=== PATIENT | female | born 1955 | race Caucasian/White ===

== ENCOUNTER 2019-10-30 10:44 | Outpatient (CLI) | payer MEDICARE, MEDICAID, SELFPAY | END 2019-10-30 10:45 | PROVIDERS: PCP Nurse Practitioner Family; Visit Provider Audiologist | DX: H91.90 Unspecified hearing loss, unspecified ear (principal) | CPT/HCPCS: 92557; 92567 ==

== ENCOUNTER 2019-11-15 10:44 | Outpatient (CLI) | payer MEDICARE, MEDICAID, SELFPAY ==
[2019-11-15 11:11] LABS: Basophils Absolute Auto 0.06 K/mm3 (0.00-0.10); Basophils Percent Auto 0.7 % (0.0-1.0); Eosinophils Absolute Auto 0.64 K/mm3 (0.02-0.50); Hematocrit 36.2 % (35.0-49.0); Hemoglobin 11.4 g/dL (12.0-15.0); Immature Granulocyte Absolute 0.03 K/mm3 (0.00-0.00); Immature Granulocyte Percent A 0.3 % (0.0-0.0); Lymphocytes Absolute Auto 1.51 K/mm3 (1.10-4.50); Lymphocytes Percent Auto 16.6 % (18.0-42.0); Mean Corpuscular HGB Conc 31.5 g/dL (32.0-36.0); Mean Corpuscular Hemoglobin 29.2 pg (27.0-31.0); Mean Corpuscular Volume 92.6 fL (78.0-102.0); Mean Platelet Volume 11.6 fl (9.2-11.8); Monocytes Absolute Auto 0.47 K/mm3 (0.10-0.90); Monocytes Percent Auto 5.2 % (2.0-11.0); Neutrophils Absolute Auto 6.4 K/mm3 (1.7-7.2); Neutrophils Percent Auto 70.2 % (50.0-70.0); Platelet Count Result 248 K/mm3 (150-420); Red Blood Count 3.91 M/mm3 (4.20-5.40); Red Cell Distribution Width 13.4 % (11.6-14.4); White Blood Count 9.1 K/mm3 (4.8-10.8)
[2019-11-15 11:32] LABS: BNP 67.6 pg/mL (0-100)
[2019-11-15 11:57] LABS: Alanine Aminotransferase 20 U/L (14-59); Albumin Level 3.8 g/dL (3.4-5.0); Alkaline Phosphatase 84 U/L (46-116); Aspartate Amino Transferase 18 U/L (15-37); Bilirubin,Total 0.3 mg/dL (0.00-1.00); Blood Urea Nitrogen 14 mg/dL (7-18); Calcium 8.9 mg/dL (8.5-10.1); Carbon Dioxide 30 mmol/L (21-32); Chloride 106 mmol/L (98-108); Estimated Glomerular Filt Rate 47; Glucose 92 mg/dL (70-99); Osmolality Calculated 294 mOsm/kg (285-295); Sodium 142 mmol/L (136-145); Total Protein 7.1 g/dL (6.4-8.2)
== END 2019-11-15 10:45 | disposition home or self-care (01) ==
LOC: CHSLAB 10:52
DX: I27.20 Pulmonary hypertension, unspecified (principal); I10 Essential (primary) hypertension; R09.02 Hypoxemia; R06.02 Shortness of breath
CPT/HCPCS: 36415; 80053; 83880; 85025

== ENCOUNTER 2019-11-27 09:46 | Outpatient (RCR) | payer MEDICARE, MEDICAID, SELFPAY | END 2020-02-25 23:59 | disposition home or self-care (01) | LOC: CHSAUDIO 09:46 | PROVIDERS: PCP Nurse Practitioner Family; Visit Provider Audiologist | DX: H91.91 Unspecified hearing loss, right ear (principal) | CPT/HCPCS: V5160; V5260 ==

== ENCOUNTER 2020-02-24 08:07 | Outpatient (CLI) | payer MEDICARE, SELFPAY ==
[2020-02-24 09:09] LABS: Alanine Aminotransferase 20 U/L (14-59); Albumin Level 3.8 g/dL (3.4-5.0); Alkaline Phosphatase 97 U/L (46-116); Anion Gap 10.6 mmol/L (7-16); Aspartate Amino Transferase 19 U/L (15-37); Bilirubin,Total 0.2 mg/dL (0.00-1.00); Blood Urea Nitrogen 12 mg/dL (7-18); Calcium 8.8 mg/dL (8.5-10.1); Carbon Dioxide 32 mmol/L (21-32); Chloride 103 mmol/L (98-108); Estimated Glomerular Filt Rate 51; Glucose 85 mg/dL (70-99); Osmolality Calculated 292 mOsm/kg (285-295); Potassium 3.6 mmol/L (3.5-5.1); Sodium 142 mmol/L (136-145); Total Protein 6.9 g/dL (6.4-8.2)
== END 2020-02-24 08:08 | disposition home or self-care (01) ==
PROVIDERS: PCP Family Medicine; Visit Provider Family Medicine
DX: E11.9 Type 2 diabetes mellitus without complications (principal); I10 Essential (primary) hypertension
CPT/HCPCS: 36415; 80053; 83036

== ENCOUNTER 2020-03-04 14:39 | Outpatient (CLI) | payer MEDICARE, SELFPAY ==
--- NOTE | ~2020-03-04 | DEXA_ITS ---
BMD(1) Young-Adult(2) Age-Matched(3) Region (g/cm2) T-score Z-score WHO Classification L1 1.038 -0.8 -0.2 Normal L2 1.092 -1.0 -0.3 Normal L3 1.090 -1.0 -0.4 Normal L4 0.974 -1.9 -1.2 Osteopenia L1-L4 1.047 -1.2 -0.5 Osteopenia Trend: L1-L4 Change vs Change vs Measured Age BMD(1) Baseline Previous Date [age]) (g/cm2) (%) (%) [birth year][age]04/2020 [age] 1.047 1.8 1.8 08/31/2018 63.6 1[age]028 baseline - 1 - Statistically 68% of repeat scans fall within 1SD (+- 0.010 g/cm2 for AP Spine L1-L4) 2 - [place] (Combined NHANES (ages 20-30) / [employer] (ages 20-40)) AP Spine Reference Population (v112) 3 - Matched for Age, Weight (females 25-100 kg), Ethnic 11 - World Health Organization - Definition of Osteoporosis and Osteopenia for Women: Normal = T-score at or above -1.0 SD; Osteopenia = T-score between -1.0 and -2.5 SD; Osteoporosis = T-score at or below -2.5 SD; (WHO definitions only apply when a young healthy Women reference database is used to determine T-scores.) Printed: 03/04/2020 3:18:40 PM (13.60)76:3.00:22.22:27.0 0.00:10.02 0.60x1.05 29.6:%Fat=43.1% 0.00:0.00 0.00:0.00 Filename: [id number] Scan Mode: Thick;OneScan 83.0 uGy [facility] [id number] BMD(1) Young-Adult(2,7) Age-Matched(3) Region (g/cm2) T-score Z-score WHO Classification Neck Left 0.734 -2.2 -1.3 Osteopenia Right 0.776 -1.9 -1.0 Osteopenia Mean 0.755 -2.0 -1.2 Osteopenia Difference 0.042 0.3 0.3 - Total Left 0.913 -0.8 -0.2 Normal Right 0.927 -0.6 -0.1 Normal Mean 0.920 -0.7 -0.2 Normal Difference 0.014 0.1 0.1 - Hip [place] Length Comparison (mm) (Right = 108.1 mm) (Mean = 102.7 mm) (Left = 108.8 mm) Trend: Total Mean Change vs Change vs Measured Age BMD(1) Baseline Previous Date (years) (g/cm2) (%) (%) 03/04/2020 65.1 0.920 6.4* 6.4* 08/31/2018 63.6 0.865 baseline - * - Indicates significant change based on 95% confidence interval. 1 - Statistically 68% of repeat scans fall within 1SD (+- 0.010 g/cm2 for DualFemur Total) 2 - [place] (Combined NHANES (ages 20-30) / [employer] (ages 20-40)) Femur Reference Population (v112) 3 - Matched for Age, Weight (females 25-100 kg), Ethnic 7 - DualFemur Total T-score difference is 0.1. Asymmetry is None. 11 - World Health Organization - Definition of Osteoporosis and Osteopenia for Women: Normal = T-score at or above -1.0 SD; Osteopenia = T-score between -1.0 and -2.5 SD; Osteoporosis = T-score at or below -2.5 SD; (WHO definitions only apply when a young healthy Women reference database is used to determine T-scores.) Printed: 03/04/2020 3:18:40 PM (13.60); Filename: [id number]; Right Femur; 25.0:%Fat=40.3%; Neck Angle (deg)= 53; Scan Mode: Standard 37.0 uGy; Left Femur; 25.3:%Fat=37.9%; Neck Angle (deg)= 58; Scan Mode: Standard 37.0 uGy [facility] [id number] Dear Morteza Bassett, Your patient Kaye Restrepo completed a BMD test on 03/04/2020 using the [facility]kimo DXA System (analysis version: 13.60) manufactured by [employer]. The following summarizes the results of our evaluation. PATIENT BIOGRAPHICAL: Name: Kaye Restrepo
== END 2020-03-04 14:40 | disposition home or self-care (01) ==
LOC: CHSIMG 14:39
PROVIDERS: PCP Family Medicine; Visit Provider Family Medicine
DX: M81.0 Age-related osteoporosis without current pathological fracture (principal)
CPT/HCPCS: 77080

== ENCOUNTER 2020-05-29 13:11 | Outpatient (CLI) | payer MEDICARE, SELFPAY ==
[2020-05-29 15:01] LABS: Hemoglobin A1C 5.5 % (<5.7)
[2020-05-29 15:04] LABS: Creatinine Urine 24.26 mg/dL (40-278); MALB Creatinine Ratio 53.5 mg/g (0-30); Microalbumin Urine Random < 13.0 mg/L
== END 2020-05-29 13:12 | disposition home or self-care (01) ==
LOC: CHSLAB 13:16
PROVIDERS: PCP Family Medicine; Visit Provider Family Medicine
DX: E11.9 Type 2 diabetes mellitus without complications (principal)
CPT/HCPCS: 36415; 82043; 83036

== ENCOUNTER 2020-07-24 08:44 | Outpatient (CLI) | payer MEDICARE, SELFPAY ==
[2020-07-24 09:22] LABS: SARS-CoV-2 Ag Positive (Negative)
== END 2020-07-24 08:45 | disposition home or self-care (01) ==
PROVIDERS: PCP Family Medicine; Visit Provider Family Medicine
DX: U07.1 COVID-19 (principal)
CPT/HCPCS: 87426

== ENCOUNTER 2020-09-21 15:10 | Outpatient (CLI) | payer MEDICARE, SELFPAY ==
[2020-09-21 16:04] LABS: Hemoglobin A1C 5.1 % (<5.7)
== END 2020-09-21 15:11 | disposition home or self-care (01) ==
LOC: CHSLAB 15:12
PROVIDERS: PCP Family Medicine; Visit Provider Family Medicine
DX: E11.9 Type 2 diabetes mellitus without complications (principal)
CPT/HCPCS: 36415; 83036

== ENCOUNTER 2021-01-06 08:26 | Outpatient (CLI) | payer MEDICARE, SELFPAY ==
[2021-01-06 08:49] LABS: Hemoglobin A1C 5.8 % (<5.7)
[2021-01-06 09:30] LABS: Anion Gap 6 mmol/L (8-16); Blood Urea Nitrogen 18 mg/dL (7-18); Calcium 8.1 mg/dL (8.5-10.1); Carbon Dioxide 29 mmol/L (21-32); Chloride 99 mmol/L (98-108); Estimated Glomerular Filt Rate 36; Glucose 97 mg/dL (70-99); NT Pro B Type Natriuretic Pept 138 pg/mL (0-125); Osmolality Calculated 279 mOsm/kg (285-295); Potassium 4.5 mmol/L (3.5-5.1); Sodium 134 mmol/L (136-145)
== END 2021-01-06 08:27 | disposition home or self-care (01) ==
LOC: CHSLAB 08:29
PROVIDERS: PCP Family Medicine
DX: I27.20 Pulmonary hypertension, unspecified (principal); E11.9 Type 2 diabetes mellitus without complications; I50.9 Heart failure, unspecified
CPT/HCPCS: 36415; 80048; 83036; 83880

== ENCOUNTER 2021-01-27 08:40 | Outpatient (CLI) | payer MEDICARE, SELFPAY ==
[2021-01-27 09:50] LABS: Anion Gap 6 mmol/L (8-16); Blood Urea Nitrogen 16 mg/dL (7-18); Calcium 9.2 mg/dL (8.5-10.1); Carbon Dioxide 31 mmol/L (21-32); Chloride 99 mmol/L (98-108); Estimated Glomerular Filt Rate 39; Glucose 67 mg/dL (70-99); Osmolality Calculated 281 mOsm/kg (285-295); Potassium 3.8 mmol/L (3.5-5.1); Sodium 136 mmol/L (136-145)
== END 2021-01-27 08:41 | disposition home or self-care (01) ==
LOC: CHSLAB 08:42
PROVIDERS: PCP Family Medicine; Visit Provider Family Medicine
DX: N18.30 Chronic kidney disease, stage 3 unspecified (principal)
CPT/HCPCS: 36415; 80048

== ENCOUNTER 2021-03-10 10:15 | Outpatient (CLI) | payer MEDICARE, SELFPAY ==
[2021-03-10 10:31] LABS: Basophils Absolute Auto 0.04 K/mm3 (0.00-0.10); Basophils Percent Auto 0.4 % (0.0-1.0); Eosinophils Absolute Auto 0.35 K/mm3 (0.02-0.50); Eosinophils Percent Auto 3.8 % (1.0-6.0); Hematocrit 34.7 % (35.0-42.0); Immature Granulocyte Absolute 0.04 K/mm3 (0.00-0.00); Immature Granulocyte Percent A 0.4 % (0.0-0.0); Lymphocytes Absolute Auto 1.38 K/mm3 (1.10-4.50); Lymphocytes Percent Auto 15.1 % (18.0-42.0); Mean Corpuscular HGB Conc 31.7 g/dL (32.0-36.0); Mean Corpuscular Hemoglobin 29.1 pg (27.0-31.0); Mean Corpuscular Volume 91.8 fL (78.0-102.0); Mean Platelet Volume 10.8 fl (9.2-11.8); Monocytes Percent Auto 6.6 % (2.0-11.0); Neutrophils Absolute Auto 6.7 K/mm3 (1.7-7.2); Neutrophils Percent Auto 73.7 % (50.0-70.0); Platelet Count Result 268 K/mm3 (150-420); Red Blood Count 3.78 M/mm3 (4.20-5.40); Red Cell Distribution Width 12.8 % (11.6-14.4); White Blood Count 9.2 K/mm3 (4.8-10.8)
[2021-03-10 10:59] LABS: Albumin Level 3.9 g/dL (3.4-5.0); Anion Gap 11 mmol/L (8-16); Blood Urea Nitrogen 14 mg/dL (7-18); Calcium 9.3 mg/dL (8.5-10.1); Carbon Dioxide 27 mmol/L (21-32); Chloride 99 mmol/L (98-108); Estimated Glomerular Filt Rate 42; Glucose 99 mg/dL (70-99); Osmolality Calculated 284 mOsm/kg (285-295); Phosphorus 3.9 mg/dL (2.6-4.7); Sodium 137 mmol/L (136-145)
[2021-03-10 11:47] LABS: Erythrocyte Sedimentation Rate 34 mm/hr (0-20)
[2021-03-13 09:42] LABS: Complement C3 146 mg/dL (83-193)
[2021-03-13 12:36] LABS: Kappa\\Lambda Light Chains 1.23 (0.26-1.65); Lambda Light Chain 16.5 mg/L (5.7-26.3)
[2021-03-13 14:45] LABS: Complement Total CH50 >60 U/mL (31-60)
== END 2021-03-10 10:16 | disposition home or self-care (01) ==
LOC: CHSLAB 10:17
PROVIDERS: PCP Family Medicine; Visit Provider Internal Medicine Nephrology
DX: R94.4 Abnormal results of kidney function studies (principal)
CPT/HCPCS: 36415; 80069; 83883; 85025; 85652; 86038; 86160; 86162; 86334

== ENCOUNTER 2021-03-12 13:41 | Outpatient (NON) | payer MEDICARE, SELFPAY ==
[2021-03-12 14:00] LABS: Add Urine Microscopic? NO; Appearance Urine Clear (Clear); Bilirubin Urine Negative (Negative); Blood Urine Negative (Negative); Color Urine Light Yellow (Yellow); Glucose Urine UA Negative (Negative); Ketones Urine Negative (Negative); Leukocyte Esterase Ur Negative LEU/UL (Negative); Nitrate Urine Negative (Negative); Protein Urine Negative (Negative); Urobilinogen Urine 0.2 mg/dL (0.2-1.0); pH Urine 6.5 (5.0-8.0)
[2021-03-12 14:05] LABS: Creatinine Urine 42.96 mg/dL (40-278); Total Protein Urine Random < 6.0 mg/dL (0.0-11.9); Ur Ttl Prot Creatinine Ratio 0.14 mg/mg (0-0.20)
== END 2021-03-12 13:42 | disposition home or self-care (01) ==
PROVIDERS: Visit Provider Internal Medicine Nephrology
DX: R94.4 Abnormal results of kidney function studies (principal)
CPT/HCPCS: 81003; 82570; 84156; 86335

== ENCOUNTER 2021-03-16 10:46 | Outpatient (CLI) | payer MEDICARE, MEDICAID, SELFPAY ==
--- NOTE | ~2021-03-16 | US_ITS ---
EXAMINATION: US retroperitoneal comp EXAM DATE: 03/16/2021 11:13 INDICATION: Abnormal labs. TECHNIQUE: Multiple grayscale and Doppler images of the kidneys were obtained (by a technologist who performed the scan) and subsequently reviewed. There is no prior study for comparison. FINDINGS: Right kidney: There is lobular contour and echogenicity. It measures 10.1 x 4.2 x 4.5 centimeters. There are no focal renal lesions identified. There is no hydronephrosis. Left kidney: There is normal lobular and echogenicity. It measures 10.3 x 4.5 x 4.4 centimeters. Th ere are no focal renal lesions identified. There is no hydronephrosis. Bladder unremarkable. IMPRESSION: 1. Sonographically unremarkable kidneys. Reviewed, dictated and finalized at location B.
== END 2021-03-16 10:47 | disposition home or self-care (01) ==
LOC: CHSIMG 10:48
PROVIDERS: PCP Family Medicine; Visit Provider Internal Medicine Nephrology
DX: R94.4 Abnormal results of kidney function studies (principal)
CPT/HCPCS: 76770

== ENCOUNTER 2021-04-07 08:24 | Outpatient (CLI) | payer MEDICARE, SELFPAY ==
[2021-04-07 10:08] LABS: Albumin Level 3.9 g/dL (3.4-5.0); Anion Gap 14 mmol/L (8-16); Blood Urea Nitrogen 20 mg/dL (7-18); Calcium 9.8 mg/dL (8.5-10.1); Carbon Dioxide 24 mmol/L (21-32); Chloride 97 mmol/L (98-108); Estimated Glomerular Filt Rate 42; Glucose 97 mg/dL (70-99); NT Pro B Type Natriuretic Pept 85 pg/mL (0-125); Osmolality Calculated 282 mOsm/kg (285-295); Phosphorus 4.7 mg/dL (2.6-4.7); Potassium 3.9 mmol/L (3.5-5.1); Sodium 135 mmol/L (136-145)
== END 2021-04-07 08:25 | disposition home or self-care (01) ==
LOC: CHSLAB 08:27
PROVIDERS: PCP Family Medicine; Visit Provider Internal Medicine Nephrology
DX: R94.4 Abnormal results of kidney function studies (principal); I27.20 Pulmonary hypertension, unspecified; R06.9 Unspecified abnormalities of breathing
CPT/HCPCS: 36415; 80069; 83880

== ENCOUNTER 2021-07-05 13:56 | Outpatient (CLI) | payer MEDICARE, SELFPAY ==
[2021-07-05 14:52] LABS: Anion Gap 11 mmol/L (8-16); Blood Urea Nitrogen 16 mg/dL (7-18); Calcium 8.8 mg/dL (8.5-10.1); Carbon Dioxide 28 mmol/L (21-32); Chloride 101 mmol/L (98-108); Estimated Glomerular Filt Rate 45; Glucose 132 mg/dL (70-99); Osmolality Calculated 293 mOsm/kg (285-295); Potassium 3.5 mmol/L (3.5-5.1); Sodium 140 mmol/L (136-145)
== END 2021-07-05 13:57 | disposition home or self-care (01) ==
LOC: CHSLAB 13:59
PROVIDERS: PCP Family Medicine
DX: I27.20 Pulmonary hypertension, unspecified (principal)
CPT/HCPCS: 36415; 80048

== ENCOUNTER 2021-09-09 16:45 | Outpatient (CLI) | payer MEDICARE, SELFPAY ==
[2021-09-09 18:17] LABS: SARS-CoV-2 RNA PCR Negative (Negative)
== END 2021-09-09 16:46 | disposition home or self-care (01) ==
LOC: CHSLAB 16:49
PROVIDERS: PCP Family Medicine; Visit Provider Family Medicine
DX: Z20.822 Contact with and (suspected) exposure to COVID-19 (principal)
CPT/HCPCS: C9803; U0003; U0005

== ENCOUNTER 2022-02-10 10:02 | Outpatient (CLI) | payer MEDICARE, SELFPAY ==
[2022-02-10 10:20] LABS: Basophils Absolute Auto 0.06 K/mm3 (0.00-0.10); Basophils Percent Auto 0.5 % (0.0-1.0); Eosinophils Percent Auto 3.4 % (1.0-6.0); Hemoglobin 9.6 g/dL (11.7-13.8); Immature Granulocyte Absolute 0.06 K/mm3 (0.00-0.00); Immature Granulocyte Percent A 0.5 % (0.0-0.0); Lymphocytes Absolute Auto 1.21 K/mm3 (1.10-4.50); Lymphocytes Percent Auto 10.2 % (18.0-42.0); Mean Corpuscular Hemoglobin 29.1 pg (27.0-31.0); Mean Corpuscular Volume 90.9 fL (78.0-102.0); Mean Platelet Volume 11.7 fl (9.2-11.8); Monocytes Percent Auto 6.7 % (2.0-11.0); Neutrophils Absolute Auto 9.4 K/mm3 (1.7-7.2); Neutrophils Percent Auto 78.7 % (50.0-70.0); Platelet Count Result 297 K/mm3 (150-420); Red Cell Distribution Width 13.5 % (11.6-14.4); White Blood Count 11.9 K/mm3 (4.8-10.8)
[2022-02-10 11:27] LABS: Anion Gap 7 mmol/L (8-16); Blood Urea Nitrogen 7 mg/dL (7-18); Calcium 8.6 mg/dL (8.5-10.1); Carbon Dioxide 28 mmol/L (21-32); Chloride 101 mmol/L (98-108); Estimated Glomerular Filt Rate > 60; Glucose 100 mg/dL (70-99); NT Pro B Type Natriuretic Pept 142 pg/mL (0-125); Osmolality Calculated 280 mOsm/kg (285-295); Potassium 3.7 mmol/L (3.5-5.1); Sodium 136 mmol/L (136-145)
== END 2022-02-10 10:03 | disposition home or self-care (01) ==
LOC: CHSLAB 10:11
PROVIDERS: PCP Family Medicine
DX: I27.29 Other secondary pulmonary hypertension (principal); C96.6 Unifocal Langerhans-cell histiocytosis; I50.21 Acute systolic (congestive) heart failure
CPT/HCPCS: 36415; 80048; 83880; 85025

== ENCOUNTER 2022-02-18 10:36 | Outpatient (CLI) | payer MEDICARE, MEDICAID, SELFPAY ==
--- NOTE | ~2022-02-18 | US_ITS ---
EXAMINATION: US arterial duplex LE DATE: 02/18/2022 11:21 INDICATION: Intraoperative hemorrhage and hematoma of a circulatory organ or structure complicating a cardiac cath. TECHNIQUE: Multiple grayscale and Doppler ultrasound images of the left groin were obtained. COMPARISON: None FINDINGS: Left common femoral artery and profunda femoral artery are patent. There is mild stenosis o f left superficial femoral artery. Left common femoral vein and femoral vein are patent. There is a 2 .4 x 1.1 x 2.1 cm subcutaneous hematoma in left inguinal region. IMPRESSION: 1. Subcutaneous hematoma in left inguinal region. No pseudoaneurysm. Reviewed, dictated and finalized at location A.
== END 2022-02-18 10:37 | disposition home or self-care (01) ==
LOC: CHSIMG 10:37
PROVIDERS: PCP Family Medicine; Visit Provider Internal Medicine Cardiovascular Disease
DX: I27.29 Other secondary pulmonary hypertension (principal); C96.6 Unifocal Langerhans-cell histiocytosis; R09.89 Other specified symptoms and signs involving the circulatory and respiratory systems
CPT/HCPCS: 93926

== ENCOUNTER 2022-08-22 10:02 | Outpatient (CLI) | payer MEDICARE, MEDICAID, SELFPAY ==
[2022-08-22 10:56] LABS: Strep Group A RT-PCR NOT DETECTED (Negative)
[2022-08-22 11:04] LABS: Influenza A QL RT-PCR Negative (Negative); Influenza B QL RT-PCR Negative (Negative); SARS-CoV-2 RNA PCR Negative (Negative)
== END 2022-08-22 10:03 | disposition home or self-care (01) ==
LOC: CHSLAB 10:05
PROVIDERS: PCP Family Medicine; Visit Provider Nurse Practitioner Family
DX: J06.9 Acute upper respiratory infection, unspecified (principal); Z20.822 Contact with and (suspected) exposure to COVID-19
CPT/HCPCS: 87636; 87651

== ENCOUNTER 2022-08-27 09:26 | Outpatient (CLI) | payer MEDICARE, SELFPAY ==
[2022-08-27 09:51] LABS: Hemoglobin A1C 5.4 % (<5.7)
[2022-08-27 10:21] LABS: Glucose 84 mg/dL (70-99)
== END 2022-08-27 09:27 | disposition home or self-care (01) ==
PROVIDERS: PCP Family Medicine
DX: I25.10 Atherosclerotic heart disease of native coronary artery without angina pectoris (principal); R73.01 Impaired fasting glucose
CPT/HCPCS: 36415; 82947; 83036

== ENCOUNTER 2022-08-29 10:42 | Outpatient (CLI) | payer MEDICARE, SELFPAY ==
--- NOTE | ~2022-08-29 | DEXA_ITS ---
Bone Density Report Name: MAL THOMPSON Age: 67 Sex: Female Ethnicity: White Date of : 1955 Indication: postmenopausal; screening for osteoporosis; height loss; prior fracture; cancer; asthma or emphysema; Referring Provider: Helena Burnette Study: Bone densitometry was performed. Exam Date: August 29, 2022 Accession number: [id number] Bone Density: Region BMD T-score Z-score Classification AP Spine(L1-L4) 0.989 -0.5 1.3 Normal Femoral Neck (Left) 0.660 -1.7 -0.1 Osteopenia Total Hip (Left) 0.885 -0.5 0.8 Normal Femoral Neck (Right) 0.622 -2.0 -0.4 Osteopenia Total Hip (Right) 0.846 -0.8 0.5 Normal Femoral Neck Mean 0.641 -1.9 -0.3 Osteopenia Total Hip Mean 0.866 -0.6 0.7 Normal World Health Organization criteria for BMD impression classify patients as: Normal (T-score at or above -1.0), Osteopenia (T-score between -1.0 and -2.5), or Osteoporosis (T-score at or below -2.5). 10-year Fracture Risk: FRAX not reported because: Treated for osteoporosis Clinical Information Provided by Patient: Has had a low trauma fracture Is being treated for osteoporosis Has used the following medications: Fosamax (i.e. alendronate), Vitamin D, Calcium Has the following medical conditions: Asthma or Emphysema, Cancer Patient maximum height was 64 Menopause Age: 47 No regular weight bearing exercise Drinks caffeinated beverages Onset of menses at age 14 Number of children 2 Impression: The patient has low bone mass, based on the Right Femoral Neck T-score. The patient has risk factors, including: previous fracture. Discussion: It is important to ask patients whether they are taking their medications and to encourage continued and appropriate compliance with their osteoporosis therapies to reduce fracture risk. It is also important to review their risk factors and encourage appropriate calcium and vitamin D intakes, exercise, fall prevention and other lifestyle measures. Follow-Up: Consider a repeat BMD and Vertebral Fracture Assessment (VFA) exam in 2 years or sooner if medically necessary, to reassess this patient's status. Reported by: Dr. Zack Rollins on 08/29/2022 11:14:00 AM. Reviewed, dictated and finalized at location Renetta MUNOZ
== END 2022-08-29 10:43 | disposition home or self-care (01) ==
LOC: CHSIMG 10:43
PROVIDERS: PCP Family Medicine; Visit Provider Nurse Practitioner Family
DX: M85.89 Other specified disorders of bone density and structure, multiple sites (principal)
CPT/HCPCS: 77080

== ENCOUNTER 2023-05-02 09:06 | Outpatient (CLI) | payer MEDICARE, SELFPAY ==
[2023-05-02 09:19] LABS: Basophils Absolute Auto 0.05 K/mm3 (0.00-0.10); Basophils Percent Auto 0.5 % (0.0-1.0); Eosinophils Absolute Auto 0.18 K/mm3 (0.02-0.50); Eosinophils Percent Auto 1.6 % (1.0-6.0); Hematocrit 39.4 % (35.0-42.0); Hemoglobin 12.8 g/dL (11.7-13.8); Immature Granulocyte Absolute 0.08 K/mm3 (0.00-0.00); Immature Granulocyte Percent A 0.7 % (0.0-0.0); Lymphocytes Absolute Auto 2.14 K/mm3 (1.10-4.50); Lymphocytes Percent Auto 19.5 % (18.0-42.0); Mean Corpuscular HGB Conc 32.5 g/dL (32.0-36.0); Mean Corpuscular Volume 86.2 fL (78.0-102.0); Mean Platelet Volume 11.3 fl (9.2-11.8); Monocytes Absolute Auto 0.78 K/mm3 (0.10-0.90); Monocytes Percent Auto 7.1 % (2.0-11.0); Neutrophils Absolute Auto 7.8 K/mm3 (1.7-7.2); Neutrophils Percent Auto 70.6 % (50.0-70.0); Platelet Count Result 273 K/mm3 (150-420); Red Blood Count 4.57 M/mm3 (4.20-5.40); Red Cell Distribution Width 15.3 % (11.6-14.4)
[2023-05-02 09:53] LABS: Creatinine Urine 200.23 mg/dL (40-278); MALB Creatinine Ratio 6.4 mg/g (0-30); Microalbumin Urine Random < 13.0 mg/L
[2023-05-02 09:57] LABS: Hemoglobin A1C 6.2 % (<5.7)
[2023-05-02 10:26] LABS: Alanine Aminotransferase 23 U/L (14-59); Albumin Level 3.5 g/dL (3.4-5.0); Alkaline Phosphatase 84 U/L (46-116); Anion Gap 6 mmol/L (8-16); Aspartate Amino Transferase 13 U/L (15-37); Bilirubin,Total 0.3 mg/dL (0.00-1.00); Blood Urea Nitrogen 16 mg/dL (7-18); Calcium 9.1 mg/dL (8.5-10.1); Carbon Dioxide 33 mmol/L (21-32); Chloride 102 mmol/L (98-108); Cholesterol 146 mg/dL (0-200); Estimated Glomerular Filt Rate 52; Glucose 79 mg/dL (70-99); HDL Direct 69 mg/dL (40-60); LDL Cholesterol Calculated 66 mg/dL (<130); Osmolality Calculated 292 mOsm/kg (285-295); Potassium 3.6 mmol/L (3.5-5.1); Sodium 141 mmol/L (136-145); Total Protein 6.4 g/dL (6.4-8.2); Triglycerides 54 mg/dL (0-150)
== END 2023-05-02 09:07 | disposition home or self-care (01) ==
LOC: CHSLAB 09:08
PROVIDERS: PCP Family Medicine; Visit Provider Family Medicine
DX: E11.9 Type 2 diabetes mellitus without complications (principal); J44.9 Chronic obstructive pulmonary disease, unspecified
CPT/HCPCS: 36415; 80053; 80061; 82043; 83036; 85025

== ENCOUNTER 2023-05-03 09:10 | Outpatient (CLI) | payer MEDICARE, SELFPAY ==
[2023-05-03 09:24] LABS: Basophils Absolute Auto 0.05 K/mm3 (0.00-0.10); Basophils Percent Auto 0.4 % (0.0-1.0); Eosinophils Absolute Auto 0.16 K/mm3 (0.02-0.50); Eosinophils Percent Auto 1.4 % (1.0-6.0); Hematocrit 39.9 % (35.0-42.0); Hemoglobin 12.8 g/dL (11.7-13.8); Immature Granulocyte Absolute 0.08 K/mm3 (0.00-0.00); Immature Granulocyte Percent A 0.7 % (0.0-0.0); Lymphocytes Absolute Auto 2.22 K/mm3 (1.10-4.50); Lymphocytes Percent Auto 18.9 % (18.0-42.0); Mean Corpuscular HGB Conc 32.1 g/dL (32.0-36.0); Mean Corpuscular Hemoglobin 27.7 pg (27.0-31.0); Mean Corpuscular Volume 86.4 fL (78.0-102.0); Monocytes Absolute Auto 0.72 K/mm3 (0.10-0.90); Monocytes Percent Auto 6.1 % (2.0-11.0); Neutrophils Absolute Auto 8.5 K/mm3 (1.7-7.2); Neutrophils Percent Auto 72.5 % (50.0-70.0); Platelet Count Result 295 K/mm3 (150-420); Red Blood Count 4.62 M/mm3 (4.20-5.40); Red Cell Distribution Width 15.4 % (11.6-14.4); White Blood Count 11.7 K/mm3 (4.8-10.8)
[2023-05-03 09:38] LABS: INR 0.9; Partial Thromboplastin Time 29.1 SEC (23.90-30.70); Prothrombin Time 10.4 Seconds (9.50-12.10)
== END 2023-05-03 09:11 | disposition home or self-care (01) ==
LOC: CHSLAB 09:13
PROVIDERS: PCP Family Medicine
DX: R79.1 Abnormal coagulation profile (principal); I27.20 Pulmonary hypertension, unspecified
CPT/HCPCS: 36415; 85025; 85610; 85730

== ENCOUNTER 2023-06-09 11:42 | Outpatient (CLI) | payer MEDICARE, SELFPAY ==
[2023-06-09 12:13] LABS: Appearance Urine Clear (Clear); Bilirubin Urine Negative (Negative); Blood Urine Negative (Negative); Color Urine Yellow (Yellow); Glucose Urine UA Negative (Negative); Ketones Urine Negative (Negative); Leukocyte Esterase Ur Negative (Negative); Nitrate Urine Negative (Negative); Protein Urine Negative (Negative); Specific Grav Ur 1.015 (1.010-1.020); Urobilinogen Urine 0.2 mg/dL (0.2-1.0)
[2023-06-09 12:14] LABS: Add Urine Microscopic? NO
[2023-06-09 12:24] LABS: Albumin Level 3.9 g/dL (3.4-5.0); Anion Gap 13 mmol/L (8-16); Blood Urea Nitrogen 10 mg/dL (7-18); Calcium 9.8 mg/dL (8.5-10.1); Carbon Dioxide 27 mmol/L (21-32); Chloride 99 mmol/L (98-108); Estimated Glomerular Filt Rate 57; Glucose 90 mg/dL (70-99); Osmolality Calculated 287 mOsm/kg (285-295); Phosphorus 4.2 mg/dL (2.6-4.7); Potassium 4.1 mmol/L (3.5-5.1); Sodium 139 mmol/L (136-145)
[2023-06-09 15:18] LABS: Troponin I 10.3 ng/L (0.00-60.4)
== END 2023-06-09 11:43 | disposition home or self-care (01) ==
LOC: CHSLAB 11:46
PROVIDERS: PCP Nurse Practitioner Family; Visit Provider Nurse Practitioner Family
DX: R39.9 Unspecified symptoms and signs involving the genitourinary system (principal); R30.9 Painful micturition, unspecified; M54.9 Dorsalgia, unspecified; R82.90 Unspecified abnormal findings in urine; R06.02 Shortness of breath
CPT/HCPCS: 36415; 80069; 81003; 84484; 87086; 87088

== ENCOUNTER 2023-12-07 09:14 | Outpatient (CLI) | payer MEDICARE, MEDICAID, SELFPAY ==
--- NOTE | ~2023-12-07 | CT_ITS ---
EXAMINATION: CT sinus wo con DATE: 12/07/2023 09:33 INDICATION: Chronic sinusitis TECHNIQUE: Computed tomography (CT) of the paranasal sinuses was performed without intravenous contra st. The dose-length product was 284.29 mGy-cm. Automated exposure control and iterative reconstructio n technique were employed. COMPARISON: CT dated 12/30/2015 FINDINGS: There is complete opacification of the right maxillary sinus which appears small and underd eveloped . There is mild mucosal thickening of the right sphenoid sinus. There are bilateral dank bullosa. L eft ostiomeatal unit is patent. Right ostiomeatal unit is patent. Mastoids are pneumatized. Small saba ateral mastoid effusions. IMPRESSION: 1. Moderate sinus disease primarily involving the right maxillary sinus. 2: Small mastoid effusions. Reviewed, dictated and finalized at location L.
== END 2023-12-07 09:15 | disposition home or self-care (01) ==
LOC: CHSIMG 09:16
PROVIDERS: PCP Family Medicine; Visit Provider Family Medicine
DX: J32.0 Chronic maxillary sinusitis (principal); H74.8X9 Other specified disorders of middle ear and mastoid, unspecified ear
CPT/HCPCS: 70486

== ENCOUNTER 2024-04-29 09:27 | Outpatient (CLI) | payer MEDICARE, SELFPAY ==
[2024-04-29 10:15] LABS: SARS-CoV-2 RNA PCR Positive (Negative)
[2024-04-29 10:21] LABS: Influenza A QL RT-PCR Negative (Negative); Influenza B QL RT-PCR Negative (Negative); RSV RNA, RT-PCR Negative (Negative)
== END 2024-04-29 09:28 | disposition home or self-care (01) ==
PROVIDERS: PCP Family Medicine; Visit Provider Family Medicine
DX: U07.1 COVID-19 (principal); J84.82 Adult pulmonary Langerhans cell histiocytosis
CPT/HCPCS: 87637

== ENCOUNTER 2024-05-22 10:10 | Outpatient (CLI) | payer MEDICARE, MEDICAID, SELFPAY ==
--- NOTE | ~2024-05-22 | XR_ITS ---
EXAMINATION: XR chest 2V DATE: 05/22/2024 10:27 INDICATION: Dyspnea TECHNIQUE: frontal and lateral views of the chest were obtained. COMPARISON: Chest radiograph dated 12/06/[address] dated 01/14/2019 FINDINGS: Stable appearance of a coarse reticular pattern throughout both lungs corresponding to severe emphyse ma with some associated pleural plical scarring on prior CT. No new airspace opacities, pulmonary justin ma, pleural effusion or pneumothorax. Heart size is normal. Enlargement of the central pulmonary alfa gracy consistent with pulmonary arterial hypertension. IMPRESSION: 1. Stable appearance of moderate reticular opacities throughout both lungs corresponding to severe em physema and peripheral pleural parenchymal scarring on CT. Reviewed, dictated and finalized at location B. IMPRESSION: 1. Stable appearance of moderate reticular opacities throughout both lungs katie esponding to severe emphysema and peripheral pleural parenchymal scarring on CT .
== END 2024-05-22 10:11 | disposition home or self-care (01) ==
PROVIDERS: PCP Family Medicine; Visit Provider Family Medicine
DX: J43.9 Emphysema, unspecified (principal); R06.00 Dyspnea, unspecified; R91.8 Other nonspecific abnormal finding of lung field
CPT/HCPCS: 71046